=== PATIENT | female | born 1970 | race Caucasian/White ===

== ENCOUNTER → 2019-07-12 | Outpatient (CLI) | payer OTHER ==
[~2019-07-12] VITALS: Ht 162.6 cm; Wt 77.1 kg
[~2019-07-12] MED LIST: MULTIVITAMINS PO
--- NOTE | 2019-07-15 07:29 | P ---
[facility] [place] [address] PROCEDURE REPORT Name: EDER FARMER Room #: REG [facility]#: [id number] Admission: 07/12/19 Attend Phys: Vin Boyd MD Discharge: Date of : 66 Report #: [id number] THIS REPORT FOR: //name// CC: Vin Turner DATE OF SERVICE: 07/12/2019 OUTPATIENT COLONOSCOPY REPORT BRIEF HISTORY: The patient is a 48-year-old woman for her first average-risk screening colonoscopy. PREOPERATIVE DIAGNOSIS: Average-risk screening colonoscopy. POSTOPERATIVE DIAGNOSIS: Moderately severe diverticulosis coli. MEDICATIONS: Deep sedation with propofol per Anesthesia. SPECIMEN: None. ESTIMATED BLOOD LOSS: None. PROCEDURE: Colonoscopy to cecum and terminal ileum. FINDINGS: Prior to propofol sedation, procedure of colonoscopy discussed with the patient as well as potential risks and its complications. She indicates she understands and desires to proceed. DESCRIPTION OF PROCEDURE: With the patient in left lateral decubitus position, digital examination was completed, which revealed no abnormalities. Subsequently, the Olympus video colonoscope was introduced in the rectum, advanced under direct vision to the cecum. Done with minimal difficulty. The cecum was identified by the ileocecal valve and the appendiceal orifice. I was able to visualize the distal segment of the terminal ileum, which was inspected and noted to be unremarkable. At that point, the scope was slowly withdrawn and careful circumferential views obtained including retroflexion of the scope in the ascending colon. Upon slow withdrawal of the scope, the prep was noted to be excellent. The mucosa was within normal limits, normal vascular pattern, normal light reflex. As we withdrew the scope, no inflammatory or neoplastic changes were seen. The mucosa was normal throughout the colon. No abnormalities were noted until the sigmoid colon was reached at which point she was noted to have a moderately severe diverticular disease without endoscopic evidence of diverticulitis. The scope was further withdrawn, no additional [facility] [address] [place] [address] PROCEDURE REPORT Name: EDER FARMER Room #: REG [facility].#: [id number] Admission: 07/12/19 Attend Phys: Vin Boyd MD Discharge: Date of : 66 Report #: [id number] abnormalities were seen. The scope was withdrawn in the rectum, no abnormalities were seen. Upon retroflexion, no abnormalities were seen. Scope was withdrawn. The patient tolerated the procedure well. CONDITION OF THE PATIENT UPON DISCHARGE: Following procedure, the patient drowsy, aroused, conversant and will be discharged home when fully ambulatory. INSTRUCTIONS TO THE PATIENT AND FAMILY AT THE TIME OF DISCHARGE: No neoplastic lesions were seen today. She is considered average risk for colon cancer. Therefore, suggest return in 10 years for average-risk screening colonoscopy. However, she should seek evaluation if she develops any specific symptoms or problems are worse, and family history in the interval time. She will return to the care of Dr. Jessica Turner. Return to see me as needed. <ELECTRONICALLY SIGNED> By: Vin Boyd MD 07/15/19 [id number] Vin Boyd MD /nt
== END | disposition home or self-care (01) ==
LOC: GI 07:10
DX: Z12.11 Encounter for screening for malignant neoplasm of colon (principal); K57.30 Diverticulosis of large intestine without perforation or abscess without bleeding; Z85.828 Personal history of other malignant neoplasm of skin; Z98.890 Other specified postprocedural states; Z86.2 Personal history of diseases of the blood and blood-forming organs and certain disorders involving the immune mechanism
CPT/HCPCS: 62110; 62900